=== PATIENT | female | born 1965 | race Caucasian/White ===

== ENCOUNTER 2017-12-08 17:46 | Emergency (ER) | payer MEDICAID ==
[~2017-12-08] VITALS: Ht 154.9 cm; Wt 64.9 kg
[2017-12-08 17:52] VITALS: BP 141/95; Ht 154.9 cm; Wt 64.9 kg
== END 2017-12-08 19:36 | disposition home or self-care (01) ==
LOC: ED 17:46
DX: R22.2 Localized swelling, mass and lump, trunk (principal)

== ENCOUNTER 2017-12-27 17:42 | Emergency (ER) | payer MEDICAID ==
[~2017-12-27] VITALS: Ht 154.9 cm; Wt 65.3 kg
[2017-12-27 18:01] VITALS: Ht 154.9 cm; Wt 65.3 kg
[2017-12-27 19:37] VITALS: BP 150/92
== END 2017-12-27 19:37 | disposition home or self-care (01) ==
LOC: ED 17:42
DX: M72.2 Plantar fascial fibromatosis (principal); I10 Essential (primary) hypertension; E78.00 Pure hypercholesterolemia, unspecified
CPT/HCPCS: Q0092